=== PATIENT | female | born 1955 | race Caucasian/White ===

== ENCOUNTER 2022-03-02 12:29 | Outpatient (CLI) | payer MEDICARE | END 2022-03-02 12:30 | disposition home or self-care (01) | LOC: CSHRAD 12:29 | PROVIDERS: ATTEND Anesthesiology Pain Medicine | DX: M47.812 Spondylosis without myelopathy or radiculopathy, cervical region (principal); Z98.890 Other specified postprocedural states | CPT/HCPCS: 72052 ==

== ENCOUNTER 2022-03-12 12:02 | Outpatient (CLI) | payer MEDICARE | END 2022-03-12 12:03 | disposition home or self-care (01) | LOC: CSHLAB 12:02 | PROVIDERS: ATTEND Podiatrist Foot & Ankle Surgery | DX: Z20.822 Contact with and (suspected) exposure to COVID-19 (principal) | CPT/HCPCS: 87811 ==